=== PATIENT | male | born 1940 | race Caucasian/White ===

== ENCOUNTER 2021-05-24 00:35 | Emergency (ER) | payer OTHER ==
[~2021-05-24] VITALS: Ht 185.4 cm; Wt 77.3 kg
[2021-05-24] MEDS ORDERED: LOSA25TA21 PO (01:18)
[2021-05-24] MEDS ORDERED: SERT-158 PO (01:18)
[2021-05-24] MEDS ORDERED: ROSU20TA73 PO (01:18)
[2021-05-24] MEDS ORDERED: METF-960 PO (01:18)
[2021-05-24 01:36] LABS: GLUCOSE,POINT OF CARE 109 MG/DL (70-110)
[2021-05-24 06:00] VITALS: BP 139/84
== END 2021-05-24 06:09 | disposition home or self-care (01) ==
LOC: EMS 00:35
DX: S09.90XA Unspecified injury of head, initial encounter (principal); E11.9 Type 2 diabetes mellitus without complications; I10 Essential (primary) hypertension; E78.00 Pure hypercholesterolemia, unspecified; Z88.0 Allergy status to penicillin; W22.8XXA Striking against or struck by other objects, initial encounter; Y93.89 Activity, other specified; Y92.89 Other specified places as the place of occurrence of the external cause; Y99.8 Other external cause status
CPT/HCPCS: 70450; 82962; 99285